=== PATIENT | female | born 1990 | race Caucasian/White ===

== ENCOUNTER 2024-06-04 12:03 | Outpatient (AMB) | payer OTHER, SELFPAY ==
--- NOTE | 2024-06-04 12:17 | MHC.PC.OV ---
Vital Signs 06/04/24 12:27 Height 5 ft 1.5 in Weight 126 lb 4 oz BMI 23.5 BP 100/64 Blood Pressure Location Lt brachial Position Sitting Pulse 80 Pulse Source Pulse Oximeter Temp 97.9 F Temp Source Temporal Artery Scan Pulse Oximetry (%) 98 Oxygen Delivery Method Room Air Intake Visit Reasons: [facility] Intake Note: Urszula presents in the office today to establish care. Patient is transferring from [facility]. Allergies latex Adverse Reaction (Verified 06/04/24 12:20) Rash Tobacco use date assessed: 06/04/24 Dental Screening Dental Screen Date: 06/04/24 Did you have a dental visit in the last 12 months?: Yes Did you have a dental problem in the last 6 months where you did not have access to dental care?: No Was dental information given to patient?: Patient has dentist HPI HPI Comments History of Present Illness Details This is a 33-year-old female with a past medical history of tachycardia, atypical chest pain, positive ELI, provoked lower extremity DVT, heart palpitations, ADHD and anxiety presenting to establish care. She transferred from my panel at [facility]. Records transfer pending. Patient has an upcoming appointment with Rheumatology in August for evaluation of positive ELI. She has a family history of autoimmune disease. She brought up concerns about chronic inflammation, chest wall pain and recurrent malar erythema. Patient suffered a lower extremity DVT following lower leg fracture. She completed a course of anticoagulation. She was seen by Hematology and had positive lupus anticoagulant. Patient says she was seen for follow up testing. I do not have the records, but she says they did follow up lab work and there was no need for chronic anticoagulation. Patient was seeing [facility], Dr. Gunderson, for evaluation of tachycardia, syncope, chest pain and dyspnea. This began after COVID-19 infection. She underwent multiple echocardiograms, EKGs, stress test and phototypesetting equipment monitor there is. Patient has a follow up appointment with a new photographic developer and printer at [facility] because her provider left. She would like to discuss possible diagnosis of POTS. She has had 3 episodes within the past 2 months of tachycardia and near syncope which she relates to standing and walking. She has a history of ADHD and anxiety. She was previously on fluoxetine and saw Behavioral Health. She uses hydroxyzine as needed which is not frequent. She is doing very well. She went through a divorce last year. She is living in a condo now. She also has been exercising and regulating her diet, and she has lost 30 lb. She is very happy about this. 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 Her only other concern is an itchy red rash that has been on the left buttock for the last few weeks. It has not spread. There is no vesicles or pustules. No fevers or chills. No changes to her products at home. ROS: Constitutional: No unexplained weight loss, fever, chills or night sweats. Eyes: No vision changes, blurry vision, double vision, eye pain, eye redness, eye discharge. Respiratory: No shortness of breath, cough or sputum production. Cardiovascular: See HPI. No pedal edema. Gastrointestinal: No anorexia, nausea, vomiting or diarrhea. No abdominal pain or blood in stool. Neurologic: No seizures, tremors, numbness, tingling, unilateral weakness. No slurred speech. No memory loss. Skin: see HPI Endocrine: No cold or heat intolerance. No polyuria or polydipsia. Psychiatric: No depression. No SI/HI. Physical exam: Constitutional: Alert, in no distress. Head: Normocephalic. Neck: Supple, Full range of motion. No lymphadenopathy. No palpable thyroid masses. Respiratory: Clear to auscultation. Cardiovascular: S1 S2 regular. No murmurs. Gastrointestinal: Abdomen soft, non-tender, non-distended. Normal bowel sounds. No palpable masses. Neurologic: No focal neurological deficits. Extremities: Warm and well perfused. No clubbing, cyanosis or edema. 3+ peripheral pulses bilaterally. Psychiatric: Normal mood and affect Skin: Nonspecific patchy, dry erythema on the left buttock. 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 [facility] Medical History (Updated 06/05/24 @ 12:26 by ASHLEIGH Carr) Anxiety ADHD Syncope Lower extremity deep venous thrombosis Chest pain, atypical Low vitamin D level Positive ELI (antinuclear antibody) Screening for cardiovascular condition Tachycardia Family History (Updated 06/04/24 @ 12:26 by Maile Molina MA) Mother Hypertension Hyperlipemia Father Hypertension Hyperlipemia Cardiovascular disease Alcoholism Paternal Grandmother Hypertension Hyperlipemia Diabetes Maternal Grandmother Clotting disorder Thyroid disease Social History (Updated 06/04/24 @ 12:27 by Maile Molina MA) Housing: Condominium Alcohol intake: current Patient Tobacco Use Status: Never used Tobacco e-Cigarette/Vaping Use: Never Used Second Hand Smoke Exposure: No service: No Current occupational status: employed 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 [facility] [employer] Current occupational exposures/hazards: No Cognitive needs: No Hearing needs: No Vision needs: Yes Questionnaire PHQ-9 Over the last 2 weeks, how often have you been bothered by any of the following problems? 1. Little interest or pleasure in doing things: not at all 2. Feeling down, depressed, or hopeless: not at all 3. Trouble falling or staying asleep, or sleeping too much: several days 4. Feeling tired or having little energy: not at all 5. Poor appetite or overeating: not at all 6. Feeling bad about yourself - or that you are a failure or have let yourself or your family down: not at all 7. Trouble concentrating on things, such as reading the newspaper or watching television: several days 8. Moving or speaking so slowly that other people could have noticed. Or the opposite - being so fidgety or restless that you have been moving around a lot more than usual: not at all 9. Thoughts that you would be better off or of hurting yourself in some way: not at all Total score: 2 Depression Screening Interpretation: Negative Depression Screening Done: Yes 61472 - PHQ-9 Billing: Patient declined-do not bill Source: Developed by Drs. Bruno Streeter, Mini Yu, Darius Chacko and colleagues, with an educational ofelia from [employer]. Thrive Questionnaire Date Thrive assessed: 06/04/24 I am a: Patient What is your living situation today?: I have a steady place to live Within the past 12 months, did the food you bought not last and you didn't have the money to get more?: Never true Within the past 12 months, did you worry whether your food would run out before you got money to buy more?: Never true Do you have trouble paying for medicines?: No Do you have trouble getting transportation to medical appointments?: No Do you have trouble paying your heating and electricity bill?: No Do you have trouble taking care of your child, family member or friend?: No Do you have trouble with day-to-day activities such as bathing, preparing meals, shopping, managing finances, etc.?: No Are you currently unemployed and looking for a job?: No Are you interested in more education?: No Please select the resources that you would like help with: None Currently or been in a relationship where the following occur: No concerns reported THRIVE Score: 0 AUDIT C Alcohol Use Questionnaire (AUDIT-C) 1. How often do you have a drink containing alcohol?: 2-4 times a month 2. How many drinks containing alcohol do you have on a typical day when you are drinking?: 1 or 2 3. How often do you have six or more drinks on one occasion?: Never Total Score: 2 Score Reviewed/Action Taken: No NEL-7 AMB Questionnaire NEL-7 Date NEL - 7 assessed: 06/04/24 Feeling nervous, anxious, or on edge: 0 = Not at all Not being able to stop or control worryin = Not at all Worrying too much about different things: 1 = Several days Trouble relaxin = Not at all Being so restless that it is hard to sit still: 1 = Several days Becoming easily annoyed or irritable: 1 = Several days Feeling afraid as if something awful might happen: 0 = Not at all Total NEL-7 score (0-4 normal; 5-9 mild; 10-14 moderate; 15-21 severe): 3 Source: Developed by Drs. Bruno Streeter, Mini Yu, Darius Chacko and colleagues, with an educational ofelia from [employer]. ACT Questionnaire In the past 4 weeks, how much of the time did your asthma keep you from getting as much done at work, school or at home?: None of the time Score: 5 Physical exam (Primary Care) Vital Signs: Last Vital Signs Temp 97.9 F 06/04/24 12:27 Pulse 80 06/04/24 12:27 BP 100/64 06/04/24 12:27 Pulse Ox 98 06/04/24 12:27 Oxygen Delivery Method Room Air 06/04/24 12:27 BMI result Body Mass Index 23.5 Tobacco/Smoking Status: Tobacco use Status Tobacco use date assessed 06/04/24 06/04/24 12:30 Patient Tobacco Use Status Never used Tobacco 06/04/24 12:30 e-Cigarette/Vaping Use Never Used 06/04/24 12:30 PHQ-9: PHQ-9 Score PHQ-9: Total score 2 06/04/24 12:42 Depression Screening Interpretation: Negative Thrive Assessment: Date of Thrive Assessment Date Thrive assessed 06/04/24 06/04/24 12:30 Currently or been in a relationship where the following occur: No concerns reported Coding Level of Care Code Est Pt Level 4 (60059) Complex EM visit Add On G2211 Diagnoses Syncope, unspecified syncope type R55 Syncope type: unspecified Tachycardia R00.0 Positive ELI (antinuclear antibody) R76.8 Low vitamin D level R79.89 Chest pain, atypical R07.89 Anxiety F41.9 Other specified attention deficit hyperactivity disorder (ADHD) F90.8 Attention deficit-hyperactivity disorder type: other specified Dermatitis L30.9 Assessment & Plan Assessment & Plan (1) Syncope: Code(s): R55 - Syncope and collapse Category: Medical Qualifiers: Syncope type: unspecified Qualified Code(s): R55 - Syncope and collapse (2) Tachycardia: Code(s): R00.0 - Tachycardia, unspecified Category: Medical (3) Positive ELI (antinuclear antibody): Code(s): R76.8 - Other specified abnormal immunological findings in serum Category: Medical (4) Low vitamin D level: Code(s): R79.89 - Other specified abnormal findings of blood chemistry Category: Medical (5) Chest pain, atypical: Code(s): R07.89 - Other chest pain Category: Medical (6) Anxiety: Code(s): F41.9 - Anxiety disorder, unspecified Category: Medical (7) ADHD: Code(s): F90.9 - Attention-deficit hyperactivity disorder, unspecified type Category: Medical Qualifiers: Attention deficit-hyperactivity disorder type: other specified Qualified Code(s): F90.8 - Attention-deficit hyperactivity disorder, other type (8) Dermatitis: Code(s): L30.9 - Dermatitis, unspecified Plan In summary this is a pleasant 33-year-old female who transferred from my panel at [facility] to continue care. She has undergone an extensive workup with Cardiology, and she has a follow up appointment at which time she plans bring up concern about potential POTS. She has an upcoming appointment with Rheumatology for concerns about malar erythema, chronic inflammation and positive ELI. Recheck labs including inflammatory markers. Rechecked vitamin-D level. She has been supplemented in the past for low vitamin-D. She is doing well from a mental health standpoint. She has been through a lot of changes within the past year, and she feels like she is doing well. Prescribed course of triamcinolone for dermatitis. Patient instructed to contact the office if symptoms do not resolve. She is also agreeable to screening tests for routine STIs including HIV. Orders: Orders Complete Blood Count no Diff 06/04/24 R00.0 - Tachycardia, unspecified, Z13.6 - Encounter for screening for cardiovascular disorders Comprehensive Met. Panel 06/04/24 R00.0 - Tachycardia, unspecified, Z13.6 - Encounter for screening for cardiovascular disorders Erythrocyte Sedimentation Rate 06/04/24 R76.8 - Other specified abnormal immunological findings in serum Vitamin D 25-OH (D2 and D3) 06/04/24 R79.89 - Other specified abnormal findings of blood chemistry CT NG by PCR 06/04/24 Z20.2 - Contact with and (suspected) exposure to infections with a predominantly sexual mode of transmission TSH reflex Free T4 06/04/24 R00.0 - Tachycardia, unspecified, Z13.6 - Encounter for screening for cardiovascular disorders Lipid Panel 06/04/24 E78.5 - Hyperlipidemia, unspecified, R00.0 - Tachycardia, unspecified, Z13.6 - Encounter for screening for cardiovascular disorders ELI Reflex Titer and Pattern 06/04/24 R76.8 - Other specified abnormal immunological findings in serum Rheumatoid Factor 06/04/24 R76.8 - Other specified abnormal immunological findings in serum C Reactive Protein 06/04/24 R76.8 - Other specified abnormal immunological findings in serum Hepatitis C Antibody 06/04/24 Z20.2 - Contact with and (suspected) exposure to infections with a predominantly sexual mode of transmission HIV Ab/Ag 06/04/24 Z20.2 - Contact with and (suspected) exposure to infections with a predominantly sexual mode of transmission Syphilis Screen 06/04/24 Z20.2 - Contact with and (suspected) exposure to infections with a predominantly sexual mode of transmission Medications: New triamcinolone acetonide 0.1% 1 appl topical BID 30 grams 0RF
[2024-06-04 12:27] VITALS: BP 100/64; PULSE 80; TEMP 36.6; O2SAT 98; BMI 23.5
--- OUTSIDE RECORDS SUMMARY | 2024-06-04 14:24 | XMS_ITS | Clinical Summary ---
Author Organization [facility] Address [address] [place] [address] Care Team Providers Care Java Lead Architect Name Role Phone Unavailable Primary Care Provider Unavailabl e Social History Tobacco Use Types Packs/Day Years Used Date Smoking Tobacco: Never Assessed Comments Unknown Sex and Gender Information Value Date Recorded Sex Assigned at Not on file Legal Sex Female 2:30 PM EST Gender Identity Not on file Sexual Orientation Not on file Plan of Treatment Health Maintenance Due Date Last Done Comments DTaP,Tdap,and Td Vaccines (1 - Tdap) 2009 Hepatitis B Vaccines (1 of 3 - 19+ 3-dose series) 2009 Cervical Cancer Screening: P ap Smear 08/06/2011 COVID-19 Vaccine ( - 2023-2 5 season) 2023 Influenza Vaccine (Season Ended) 2024 HIB Vaccines Aged Out No longer eligi ble based on patient's age to complete this topic HPV Vaccines Aged Out No longer eligi ble based on patient's age to complete this topic Hepatitis A Vaccines Aged Out No long er eligible based on patient's age to complete this topic IPV Vaccines Aged Out No longer eligi ble based on patient's age to complete this topic MMR Vaccines Aged Out No longer eligi ble based on patient's age to complete this topic Meningococcal ACWY Vaccine Aged Out N o longer eligible based on patient's age to complete this topic Meningococcal B Vaccine Aged Out No l onger eligible based on patient's age to complete this topic Pneumococcal Vaccine: Pediat rics (0 to 5 Years) and At-Risk Patients (6 to 64 Years) Aged Out No longer eligible b ased on patient's age to complete this topic RSV Immunization Patients Un kimberly 20 months Aged Out No longer eligible b ased on patient's age to complete this topic Varicella Vaccines Aged Out No longer eligible based on patient's age to complete this topic
== END 2024-06-04 12:59 | disposition home or self-care (01) ==
LOC: HO.HMCFM 12:04
PROVIDERS: Visit Provider Physician Assistant Medical
DX: R55 Syncope and collapse (principal); R00.0 Tachycardia, unspecified; R76.8 Other specified abnormal immunological findings in serum; R79.89 Other specified abnormal findings of blood chemistry; R07.89 Other chest pain; F41.9 Anxiety disorder, unspecified; F90.8 Attention-deficit hyperactivity disorder, other type; L30.9 Dermatitis, unspecified

== ENCOUNTER → 2024-06-04 12:03 | Outpatient (BNVA) | payer OTHER, SELFPAY | PROVIDERS: Visit Provider Physician Assistant Medical ==

== ENCOUNTER 2024-06-06 11:45 | Outpatient (REF) | payer OTHER, SELFPAY ==
--- OUTSIDE RECORDS SUMMARY | 2024-06-06 13:17 | XMS_ITS | Clinical Summary ---
Author Organization [facility] [place] Address [address] [place] [address] Care Team Providers Care Compensation Director Name Role Phone Unavailable Primary Care Provider [...]
[2024-06-06 14:26] LABS: Hematocrit 44.1 % (37.0-47.0); Hemoglobin 14.2 g/dl (12.0-16.0); Mean Corpuscular HGB Conc 32.2 g/dl (31.0-35.0); Mean Platelet Volume 11.2 fL (9.4-12.3); Platelet Count 253 X10*3/uL (160-400); Red Blood Count 4.74 X10*6/uL (4.20-5.50); Red Cell Distribution Width 12.3 % (11.0-16.0); White Blood Count 5.7 X10*3/uL (4.8-10.8)
[2024-06-06 14:54] LABS: Alanine Aminotransferase 15 U/L (0-31); Albumin Level 4.3 g/dL (3.5-5.0); Alkaline Phosphatase 74 U/L (39-117); Anion Gap 11 (12-20); Aspartate Amino Transferase 17 U/L (5-31); Bilirubin Total 0.6 mg/dL (0.0-1.0); Blood Urea Nitrogen 14 mg/dL (9-16); C Reactive Protein 0.18 mg/dL (< or = 0.50); Calcium 9.5 mg/dL (8.4-10.2); Carbon Dioxide 27 mmol/L (22-29); Chloride 106 mmol/L (96-108); Cholesterol 195 mg/dL (<200); Estimated Glomerular Filt Rate > 60; Glucose Random 93 mg/dL (60-115); HDL Cholesterol 60 mg/dL (>40); LDL Cholesterol Calculated 122 mg/dL (<100); Potassium 3.8 mmol/L (3.3-5.1); Sodium 140 mmol/L (135-145); Total Protein 7.1 g/dL (6.5-8.0); Triglycerides 69 mg/dL (<150)
[2024-06-06 14:57] LABS: TSH reflex Free T4 0.89 uIU/mL (0.32-4.0)
[2024-06-06 15:03] LABS: Erythrocyte Sedimentation Rate 3 MM/HR (0-20)
[2024-06-07 08:01] LABS: Syphilis Screen Nonreactive (Nonreactive)
[2024-06-07 08:16] LABS: HIV AB/AG Nonreactive (Nonreactive); HIV Num 1 0.07 S/CO (0.00-0.99); ~HepC Num1 0.09 S/CO (0.00-0.79); ~Hepatitis C Antibody Nonreactive (Nonreactive)
[2024-06-08 10:18] LABS: Anti Nuclear Antibody Pattern Nuclear, Speckled; Anti Nuclear Antibody Screen POSITIVE (NEGATIVE); Anti Nuclear Antibody Titer 1:40 titer
[2024-06-10 15:39] LABS: Vitamin D 25-OH, D2 <4 ng/mL; Vitamin D 25-OH, D3 26 ng/mL; Vitamin D 25-OH, Total 26 ng/mL (30-100)
== END 2024-06-06 11:46 | disposition home or self-care (01) ==
LOC: HO.WFDLDS 11:45
PROVIDERS: Visit Provider Physician Assistant Medical
DX: R00.0 Tachycardia, unspecified (principal); Z13.6 Encounter for screening for cardiovascular disorders; E78.5 Hyperlipidemia, unspecified; R76.8 Other specified abnormal immunological findings in serum; Z20.2 Contact with and (suspected) exposure to infections with a predominantly sexual mode of transmission; R79.89 Other specified abnormal findings of blood chemistry
CPT/HCPCS: 36415; 80053; 80061; 82306; 84443; 85027; 85652; 86038; 86039; 86140; 86431; 86780; 86803; 87389

== ENCOUNTER 2024-09-24 10:30 | Outpatient (AMB) | payer OTHER, SELFPAY ==
--- NOTE | 2024-09-24 10:32 | A.OFFPC_ITS ---
Vital Signs 09/24/24 10:36 Height 5 ft 1.5 in Weight 126 lb BMI 23.4 BP 100/62 Blood Pressure Location Rt brachial Position Sitting Pulse 86 Pulse Source Pulse Oximeter Temp 97.8 F Temp Source Temporal Artery Scan Pulse Oximetry (%) 98 Oxygen Delivery Method Room Air Intake Visit Reasons: FLMA PW Intake Note: Urszula presents in the office today to discuss FMLA paperwork. Allergies latex Adverse Reaction (Verified 09/24/24 10:35) Rash Medication List - Last Reconciled 09/25/24 by ASHLEIGH Carr hydroxyzine HCl 25 mg PO QID PRN levonorgestrel (Liletta) intrauterine triamcinolone acetonide 0.1% 1 appl topical BID valacyclovir (Valtrex) 1,000 mg PO DAILY Tobacco use date assessed: 09/24/24 Dental Screening Dental Screen Date: 09/24/24 Did you have a dental visit in the last 12 months?: Yes Did you have a dental problem in the last 6 months where you did not have access to dental care?: No Was dental information given to patient?: Patient has dentist HPI HPI Comments History of Present Illness Details This is a 33-year-old female with a past medical history of tachycardia, syncope, atypical chest pain, positive ELI, provoked lower extremity DVT, heart palpitations, ADHD and anxiety presenting to have forms completed for her job. The patient saw Rheumatology in August for evaluation of a positive ELI. Patient was not suspected to have a rheumatological disorder based on that visit. . Patient suffered a lower extremity DVT following lower leg fracture. She completed a course of anticoagulation. She was seen by Hematology and had positive lupus anticoagulant, and after further lab evaluation it was determined there was no need for chronic anticoagulation. Patient was evaluated by [facility] Cardiology, Dr. Gunderson, for evaluation of tachycardia, syncope, chest pain and dyspnea. This began in 2022. She underwent multiple echocardiograms, EKGs, stress test and secured entrance monitor. She has an appointment with Dr. Saini coming up for re-evaluation to discuss possible diagnosisof POTS. She continues to experience symptoms associated with racing heart, dizziness and almost passing out. She needs FMLA forms completed for were She has a history of ADHD and anxiety. She was previously on fluoxetine and saw Behavioral Health. She uses hydroxyzine as needed which is not frequent. She is doing very well. She went through a divorce a year ago. She is living in a condo now. She also has been exercising and regulating her diet, and she has lost 30 lb. She is very happy about this. 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 She is concerned about potential demyelinating disorder or other intracranial lesion in causing some of her symptoms. She endorses chronic fatigue, difficulty with depth perception and always being clumsy and being off balance denies numbness, paresthesias and weakness. ROS: Constitutional: No unexplained weight loss, fever, chills or night sweats. Eyes: No vision changes, blurry vision, double vision, eye pain, eye redness, eye discharge. Respiratory: No shortness of breath, cough or sputum production. Cardiovascular: See HPI. No pedal edema. Gastrointestinal: No anorexia, nausea, vomiting or diarrhea. No abdominal pain or blood in stool. Neurologic: No seizures, tremors, numbness, tingling, unilateral weakness. No slurred speech. No memory loss. Skin: see HPI Endocrine: No cold or heat intolerance. No polyuria or polydipsia. Psychiatric: No depression. No SI/HI. Physical exam: Constitutional: Alert, in no distress. Head: Normocephalic. Eyes: EOMI, PERRL Neck: Supple, Full range of motion. No lymphadenopathy. No palpable thyroid masses. Respiratory: Clear to auscultation. Cardiovascular: S1 S2 regular. No murmurs. Neurologic:?Alert and oriented x 3, no focal deficits observed, CN 2-12 intact, [id number] normal, sensation equal and symmetric, strength UE and LE 5/5 bilaterally, reflexes equal and symmetric.? Normal gait.? Patient able to heel walk, toe walk and walk heel-to-toe across the floor.? No pronator drift.? Negative Romberg. Extremities: Warm and well perfused. No clubbing, cyanosis or edema. Intact peripheral pulses bilaterally. Psychiatric: Normal mood and affect [facility] Medical History (Updated 09/25/24 @ 12:47 by ASHLEIGH Carr) Chronic fatigue Balance problem Anxiety ADHD Syncope Lower extremity deep venous thrombosis Chest pain, atypical Low vitamin D level Positive ELI (antinuclear antibody) Screening for cardiovascular condition Tachycardia Family History Mother Hypertension Hyperlipemia Father Hypertension Hyperlipemia Cardiovascular disease Alcoholism Paternal Grandmother Hypertension Hyperlipemia Diabetes Maternal Grandmother Clotting disorder Thyroid disease Social History (Updated 09/24/24 @ 10:36 by Maile Molina MA) Housing: Condominium Alcohol intake: current Patient Tobacco Use Status: Never used Tobacco e-Cigarette/Vaping Use: Never Used Second Hand Smoke Exposure: No Use of substances other than those prescribed or required for medical reasons: No service: No Current occupational status: employed 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 [employer] Current occupational exposures/hazards: No Cognitive needs: No Hearing needs: No Vision needs: Yes Questionnaire Thrive Questionnaire Date Thrive assessed: 05/29/24 I am a: Patient What is your living situation today?: I have a steady place to live Within the past 12 months, did the food you bought not last and you didn't have the money to get more?: Never true Within the past 12 months, did you worry whether your food would run out before you got money to buy more?: Never true Do you have trouble paying for medicines?: No Do you have trouble getting transportation to medical appointments?: No Do you have trouble paying your heating and electricity bill?: No Do you have trouble taking care of your child, family member or friend?: No Do you have trouble with day-to-day activities such as bathing, preparing meals, shopping, managing finances, etc.?: No Are you currently unemployed and looking for a job?: No Are you interested in more education?: No Please select the resources that you would like help with: None Currently or been in a relationship where the following occur: No concerns reported THRIVE Score: 0 NEL-7 AMB Questionnaire NEL-7 Date NEL - 7 assessed: 06/04/24 Source: Developed by Drs. Bruno Streeter, Mini Yu, Darius Chacko and colleagues, with an educational ofelia from [employer]. Physical exam (Primary Care) Vital Signs: Last Vital Signs Temp 97.8 F 09/24/24 10:36 Pulse 86 09/24/24 10:36 BP 100/62 09/24/24 10:36 Pulse Ox 98 09/24/24 10:36 Oxygen Delivery Method Room Air 09/24/24 10:36 BMI result Body Mass Index 23.4 Tobacco/Smoking Status: Tobacco use Status Tobacco use date assessed 09/24/24 09/24/24 10:39 Patient Tobacco Use Status Never used Tobacco 09/24/24 10:36 e-Cigarette/Vaping Use Never Used 09/24/24 10:36 Thrive Assessment: Date of Thrive Assessment Date Thrive assessed 05/29/24 09/24/24 10:35 Currently or been in a relationship where the following occur: No concerns reported Coding Level of Care Code Est Pt Level 4 (32822) Complex EM visit Add On G2211 Diagnoses Syncope, unspecified syncope type R55 Syncope type: unspecified Tachycardia R00.0 Positive ELI (antinuclear antibody) R76.8 Chest pain, atypical R07.89 Anxiety F41.9 Other specified attention deficit hyperactivity disorder (ADHD) F90.8 Attention deficit-hyperactivity disorder type: other specified Chronic fatigue R53.82 Balance problem R26.89 Assessment & Plan Assessment & Plan (1) Syncope: Code(s): R55 - Syncope and collapse Category: Medical Qualifiers: Syncope type: unspecified Qualified Code(s): R55 - Syncope and collapse (2) Tachycardia: Code(s): R00.0 - Tachycardia, unspecified Category: Medical (3) Positive ELI (antinuclear antibody): Code(s): R76.8 - Other specified abnormal immunological findings in serum Category: Medical (4) Chest pain, atypical: Code(s): R07.89 - Other chest pain Category: Medical (5) Anxiety: Code(s): F41.9 - Anxiety disorder, unspecified Category: Medical (6) ADHD: Code(s): F90.9 - Attention-deficit hyperactivity disorder, unspecified type Category: Medical Qualifiers: Attention deficit-hyperactivity disorder type: other specified Qualified Code(s): F90.8 - Attention-deficit hyperactivity disorder, other type (7) Chronic fatigue: Code(s): R53.82 - Chronic fatigue, unspecified Category: Medical (8) Balance problem: Code(s): R26.89 - Other abnormalities of gait and mobility Category: Medical Plan I completed the FMLA forms for the patient. She will keep her upcoming appointment for Cardiology. POTS on differential. Continue to hydrate and stressed the importance of adequate nutrition throughout the day. Avoid alcohol and caffeine. She saw Rheumatology for positive ELI. SLE not suspect at this time. I ordered an MRI given history of chronic fatigue, syncopal episodes and report of issues with depth perception and balance. She has a physical scheduled this fall. Orders: Orders MR head/brain wo/w con 09/24/24 R26.89 - Other abnormalities of gait and mobility, R55 - Syncope and collapse
[2024-09-24 10:36] VITALS: BP 100/62; PULSE 86; TEMP 36.6; O2SAT 98; BMI 23.4
--- OUTSIDE RECORDS SUMMARY | 2024-09-24 11:30 | XMS_ITS | Clinical Summary ---
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
== END 2024-09-24 11:21 | disposition home or self-care (01) ==
LOC: HO.HMCFM 10:30
PROVIDERS: Visit Provider Physician Assistant Medical
DX: R55 Syncope and collapse (principal); R00.0 Tachycardia, unspecified; R76.8 Other specified abnormal immunological findings in serum; R07.89 Other chest pain; F41.9 Anxiety disorder, unspecified; F90.8 Attention-deficit hyperactivity disorder, other type; R53.82 Chronic fatigue, unspecified; R26.89 Other abnormalities of gait and mobility

== ENCOUNTER 2024-11-29 16:05 | Outpatient (AMB) | payer OTHER, SELFPAY ==
--- NOTE | 2024-11-29 16:08 | A.OFFPC_ITS ---
Vital Signs 11/29/24 16:13 Height 5 ft 1.5 in Weight 129 lb 6 oz BMI 24.0 BP 104/70 Blood Pressure Location Lt brachial Position Sitting Respiration 15 Pulse 96 Pulse Source Pulse Oximeter Temp 98.2 F Temp Source Temporal Artery Scan Pulse Oximetry (%) 98 Oxygen Delivery Method Room Air Intake Visit Reasons: physical exam Intake Note: Urszula presents in the office today for her annual physical. Allergies latex Adverse Reaction (Verified 11/29/24 16:11) Rash Medication List - Last Reconciled 11/29/24 by ASHLEIGH Carr cyclobenzaprine 5 mg PO TID PRN hydroxyzine HCl 25 mg PO QID PRN levonorgestrel (Liletta) intrauterine triamcinolone acetonide 0.1% 1 appl topical BID valacyclovir (Valtrex) 1,000 mg PO DAILY Tobacco use date assessed: 11/29/24 Dental Screening Dental Screen Date: 11/29/24 Did you have a dental visit in the last 12 months?: Yes Did you have a dental problem in the last 6 months where you did not have access to dental care?: No Was dental information given to patient?: Patient has dentist HPI HPI Comments History of Present Illness Details This is a 34-year-old female with a past medical history of tachycardia, syncope, atypical chest pain, positive ELI, provoked lower extremity DVT, heart palpitations, ADHD and anxiety presenting for a physical. The patient saw Rheumatology in August for evaluation of a positive ELI. Patient was not suspected to have a rheumatological disorder based on that visit. . Patient suffered a lower extremity DVT following lower leg fracture. She completed a course of anticoagulation. She was seen by Hematology and had positive lupus anticoagulant, and after further lab evaluation it was determined there was no need for chronic anticoagulation. Patient was evaluated by [facility] Cardiology, Dr. Gunderson, for evaluation of tachycardia, syncope, chest pain and dyspnea. This began in 2022. 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 She saw Dr. Saini recently, and a tilt test was ordered for suspicioun of POTS. She has a history of ADHD and anxiety. She was previously on fluoxetine and saw Behavioral Health. She uses hydroxyzine as needed which is not frequent. She is doing very well. She went through a divorce. She is living in a condo now. She also has been exercising and regulating her diet, and she has lost 30 lb. She is very happy about this. 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 She endorsed potential demyelinating disorder or other intracranial lesion in causing some of her symptoms. She endorses chronic fatigue, difficulty with depth perception and always being clumsy and being off balance denies numbness, paresthesias and weakness. I ordered imaging, but she needs to schedule it. ROS: Constitutional: No unexplained weight loss, fever, chills or night sweats. Eyes: No vision changes, blurry vision, double vision, eye pain, eye redness, eye discharge. ENT: No hearing loss, sneezing, congestion, runny nose or sore throat. Respiratory: No shortness of breath, cough or sputum production. Cardiovascular: see HPI. Denies pedal edema. Gastrointestinal: No anorexia, nausea, vomiting or diarrhea. No abdominal pain or blood in stool. Genitourinary: No dysuria, hematuria, urinary frequency. Neurologic: see HPI Musculoskeletal: No joint pain or swelling. Intermittent back pain (flexeril as needed) Hematologic/Lymphatics: No bleeding or bruising. No painful lymph nodes. Skin: No rash Endocrine: No cold or heat intolerance. No polyuria or polydipsia. Psychiatric: No depression. No SI/HI. Physical exam: Constitutional: Alert, in no distress. Eyes: Pupils are equal, round and reactive to light. Extraocular muscles intact. Ear, Nose and Throat: Canals clear. TMs normal. Normal nasal mucosa. No nasal discharge. No oral lesions. Neck: Supple, Full range of motion. No lymphadenopathy. No palpable thyroid masses. Respiratory: Clear to auscultation. Cardiovascular: S1 S2 regular. No murmurs. Gastrointestinal: Abdomen soft, non-tender, non-distended. Normal bowel sounds. No palpable masses. Neurologic: No focal neurological deficits. Symmetric patellar reflexes. Moves all extremities spontaneously. Sensation intact bilaterally. Skin: No rashes Musculoskeletal: No gross deformities. Normal range of motion. Extremities: Warm and well perfused. No clubbing, cyanosis or edema. Intact peripheral pulses bilaterally. Psychiatric: Normal mood and affect [facility] Medical History (Updated 11/29/24 @ 21:26 by ASHLEIGH Carr) Routine physical examination Chronic fatigue Balance problem Anxiety ADHD Syncope Lower extremity deep venous thrombosis Chest pain, atypical Low vitamin D level Positive ELI (antinuclear antibody) Screening for cardiovascular condition Tachycardia Family History Mother Hypertension Hyperlipemia Father Hypertension Hyperlipemia Cardiovascular disease Alcoholism Paternal Grandmother Hypertension Hyperlipemia Diabetes Maternal Grandmother Clotting disorder Thyroid disease Social History (Updated 11/29/24 @ 16:13 by Maile Molina [facility]) Housing: Condominium Alcohol intake: current Patient Tobacco Use Status: Never used Tobacco e-Cigarette/Vaping Use: Never Used Second Hand Smoke Exposure: No service: No Current occupational status: employed 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 1. Little interest or pleasure in doing things: not at all 2. Feeling down, depressed, or hopeless: not at all 3. Trouble falling or staying asleep, or sleeping too much: not at all 4. Feeling tired or having little energy: not at all 5. Poor appetite or overeating: not at all 6. Feeling bad about yourself - or that you are a failure or have let yourself or your family down: not at all 7. Trouble concentrating on things, such as reading the newspaper or watching television: several days 8. Moving or speaking so slowly that other people could have noticed. Or the opposite - being so fidgety or restless that you have been moving around a lot more than usual: not at all 9. Thoughts that you would be better off or of hurting yourself in some way: not at all Total score: 1 Depression Screening Interpretation: Negative Depression Screening Done: Yes 10574 - PHQ-9 Billing: Yes Source: Developed by Drs. Bruno Streeter, Mini Yu, Darius Chacko and colleagues, with an educational ofelia from [employer]. Thrive Questionnaire Date Thrive assessed: 11/29/24 I am a: Patient What is your living situation today?: I have a steady place to live Within the past 12 months, did the food you bought not last and you didn't have the money to get more?: Never true Within the past 12 months, did you worry whether your food would run out before you got money to buy more?: Never true Do you have trouble paying for medicines?: No Do you have trouble getting transportation to medical appointments?: No Do you have trouble paying your heating and electricity bill?: No Do you have trouble taking care of your child, family member or friend?: No Do you have trouble with day-to-day activities such as bathing, preparing meals, shopping, managing finances, etc.?: No Are you currently unemployed and looking for a job?: No Are you interested in more education?: No Please select the resources that you would like help with: None Currently or been in a relationship where the following occur: No concerns reported THRIVE Score: 0 AUDIT C Alcohol Use Questionnaire (AUDIT-C) 1. How often do you have a drink containing alcohol?: Monthly or less 2. How many drinks containing alcohol do you have on a typical day when you are drinking?: 1 or 2 3. How often do you have six or more drinks on one occasion?: Never Total Score: 1 NEL-7 AMB Questionnaire NEL-7 Date NEL - 7 assessed: 11/29/24 Feeling nervous, anxious, or on edge: 0 = Not at all Not being able to stop or control worryin = Not at all Worrying too much about different things: 0 = Not at all Trouble relaxin = Not at all Being so restless that it is hard to sit still: 0 = Not at all Becoming easily annoyed or irritable: 1 = Several days Feeling afraid as if something awful might happen: 0 = Not at all Total NEL-7 score (0-4 normal; 5-9 mild; 10-14 moderate; 15-21 severe): 1 Source: Developed by Drs. Bruno Streeter, Mini Yu, Darius Chacko and colleagues, with an educational ofelia from [employer]. NEL-7 Assessment Billing NEL-7 Assessment Tool: NEL-7 Assessment 33503 Physical exam (Primary Care) Vital Signs: Last Vital Signs Temp 98.2 F 11/29/24 16:13 Pulse 96 11/29/24 16:13 Resp 15 11/29/24 16:13 BP 104/70 11/29/24 16:13 Pulse Ox 98 11/29/24 16:13 Oxygen Delivery Method Room Air 11/29/24 16:13 BMI result Body Mass Index 24.0 Tobacco/Smoking Status: Tobacco use Status Tobacco use date assessed 11/29/24 11/29/24 16:16 Patient Tobacco Use Status Never used Tobacco 11/29/24 16:13 e-Cigarette/Vaping Use Never Used 11/29/24 16:13 PHQ-9: PHQ-9 Score PHQ-9: Total score 1 11/29/24 16:32 Depression Screening Interpretation: Negative Thrive Assessment: Date of Thrive Assessment Date Thrive assessed 11/29/24 11/29/24 16:10 Currently or been in a relationship where the following occur: No concerns reported Coding Level of Care Code Est Pt Prev Care 18-39y(95370) Diagnoses Routine physical examination Z00.00 Additional Codes NEL-7 Assessment Billing - NEL-7 Assessment Tool: NEL-7 Assessment 94836 ([id number]) PHQ-9 - 43895 - PHQ-9 Billing: Yes ([id number]) Assessment & Plan Assessment & Plan (1) Routine physical examination: Code(s): Z00.00 - Encounter for general adult medical examination without abnormal findings Category: Medical Plan Patient is seen today for a routine physical. As part of this visit we reviewed the following issues, which are considered and essential part of preventative health in this age group: - Breast Cancer screening - Annual Glazier Apprentice exam - Blood pressure screening - Cholesterol screening - Osteoporosis prevention including calcium/vitamin D intake, weight bearing exercise & smoking cessation - Nutritional and exercise counseling - Counseling of injury prevention including fire prevention, smoke alarms and seat belt usage - Screening for depression - Prevention of and/or testing for infectious diseases - Education about skin cancer - referred for derm exam - Recommendations about immunizations - Recommendation of an eye exam - Screening for substance abuse Schedule physical in 1 year. Orders: Referrals Dermatology Referral Z12.83 - Encounter for screening for malignant neoplasm of skin Medications: New cyclobenzaprine 5 mg PO TID PRN 30 tabs 1RF muscle spasm
[2024-11-29 16:13] VITALS: BP 104/70; PULSE 96; RESP 15; TEMP 36.8; O2SAT 98; BMI 24.0
--- OUTSIDE RECORDS SUMMARY | 2024-11-29 19:26 | XMS_ITS | Clinical Summary ---
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
== END 2024-11-29 16:58 | disposition home or self-care (01) ==
LOC: HO.HMCFM 16:06
PROVIDERS: PCP Physician Assistant Medical; Visit Provider Physician Assistant Medical
DX: Z00.00 Encounter for general adult medical examination without abnormal findings (principal)

== ENCOUNTER → 2024-11-29 16:05 | Outpatient (BNVA) | payer OTHER, SELFPAY | PROVIDERS: PCP Physician Assistant Medical; Visit Provider Physician Assistant Medical | DX: Z00.00 Encounter for general adult medical examination without abnormal findings (principal); F90.9 Attention-deficit hyperactivity disorder, unspecified type; F41.9 Anxiety disorder, unspecified; Z86.718 Personal history of other venous thrombosis and embolism; Z13.31 Encounter for screening for depression; Z13.39 Encounter for screening examination for other mental health and behavioral disorders | CPT/HCPCS: 96127 ==